=== PATIENT | female | born 1950 | race Caucasian/White ===

== ENCOUNTER 2016-11-23 11:01 | Emergency (ER) | payer SELFPAY ==
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
== END 2016-11-23 12:55 | disposition home or self-care (01) ==
LOC: UCEAST 11:01
DX: T22.212A Burn of second degree of left forearm, initial encounter (principal); L30.9 Dermatitis, unspecified; T31.0 Burns involving less than 10% of body surface; X12.XXXA Contact with other hot fluids, initial encounter; Y93.9 Activity, unspecified; Y92.9 Unspecified place or not applicable; Z88.0 Allergy status to penicillin
CPT/HCPCS: 99202; G0463

== ENCOUNTER 2018-09-14 16:50 | Emergency (ER) | payer SELFPAY ==
[2018-09-14 19:51] LABS: Hematocrit 42 % (35-47); Hemoglobin 14.2 g/dL (12.0-16.0); Mean Corpuscular HGB Conc 34 g/dL (31-36); Mean Corpuscular Hemoglobin 29 pg (27-31); Mean Corpuscular Volume 87 fL (80-97); Platelet Count 231 10^3/uL (150-450); Red Blood Count 4.83 10^6 /uL (3.70-4.87); Red Cell Distribution Width 14 % (10-15)
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
[2018-09-14 20:10] LABS: Albumin 4.1 g/dL (3.2-5.2); Albumin/Globulin Ratio 1.1 (1-3); BUN/Creatinine Ratio 20.5 (8-20); C Reactive Protein 20.97 mg/L (<8.01); Calcium 9.8 mg/dL (8.6-10.3); EGFR African American 82.2 (>60); Globulin 3.8 g/dL (2-4); Potassium 4.1 mmol/L (3.5-5.0); Total Bilirubin 0.3 mg/dL (0.2-1.0); Total Protein 7.9 g/dL (6.4-8.9)
[2018-09-14] MEDS ORDERED: Sulfamethox/Trimethoprim DS 800/160* TAB PO ONE (20:19)
[2018-09-14] MEDS ORDERED: Cephalexin CAP* 500 MG PO ONE (20:19)
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
[2018-09-14 21:41] VITALS: BP 154/85
== END 2018-09-14 21:00 | disposition home or self-care (01) ==
LOC: ED 16:50
DX: L01.00 Impetigo, unspecified (principal); Z88.0 Allergy status to penicillin
CPT/HCPCS: 36415; 80053; 83605; 85027; 86140; 87040; 99282; A9270-GY